=== PATIENT | male | born 1945 ===

== ENCOUNTER 2016-05-07 11:15 | Outpatient (CLI) | payer MEDICARE, BC | END 2016-05-07 11:16 | disposition home or self-care (01) | LOC: NAVSJIPCSP 11:15 | PROVIDERS: ATTEND Internal Medicine | DX: I11.9 Hypertensive heart disease without heart failure (principal); E78.5 Hyperlipidemia, unspecified; D72.829 Elevated white blood cell count, unspecified; Z79.899 Other long term (current) drug therapy | CPT/HCPCS: 36415; 80061; 85007; 85027; 85060 ==

== ENCOUNTER 2016-06-09 11:27 | Outpatient (CLI) | payer MEDICARE, BC | END 2016-06-09 11:28 | LOC: NAVSJIPCSP 11:27 | PROVIDERS: ATTEND Internal Medicine | DX: R30.0 Dysuria (principal) | CPT/HCPCS: 87086 ==

== ENCOUNTER 2016-08-05 12:20 | Outpatient (CLI) | payer MEDICARE, BC ==
[2016-08-05 12:56] LABS: #Basophils 0.1 thou/uL (0.0-0.2); #Eosinphils 0.3 thou/uL (0.0-0.7); #Monocytes 0.8 thou/uL (0.11-0.59); #Neutrophils 7.4 thou/uL (1.40-6.50); %Basophils 0.8 % (0.0-1.0); %Eosinophils 2.3 % (0.0-10.0); %Monocytes 6.7 % (0.0-10.0); %Neutrophils 64.2 % (42.0-75.0); Mean Corpuscular HGB CONC 36.2 g/dL (32.0-36.0); Mean Corpuscular Hemoglobin 33.1 pg (27.0-31.0); Mean Corpuscular Volume 91.4 fl (80.0-94.0); Mean Platelet Volume 8.4 fL (7.4-10.4); Platelet Count 166 thou/uL (130-400); RBC Distribution Width 13.8 % (11.5-14.5); Red Blood Cell (RBC) Count 5.12 mill/uL (4.70-6.10); White Blood Cell (WBC) Count 11.5 thou/uL (4.8-10.8)
[2016-08-05 13:59] LABS: Cardiac Risk 3.8 (Less than 4.5)
[2016-08-05 17:51] LABS: Folate (Folic Acid) 6.3 ng/mL (7.0-31.4)
== END 2016-08-05 12:21 | disposition home or self-care (01) ==
LOC: NAVSJIPCSP 12:20
PROVIDERS: ATTEND Internal Medicine
DX: E78.5 Hyperlipidemia, unspecified (principal); D72.829 Elevated white blood cell count, unspecified; D75.89 Other specified diseases of blood and blood-forming organs; Z79.899 Other long term (current) drug therapy
CPT/HCPCS: 36415; 80061; 82607; 82746; 85025